=== PATIENT | male | born 1975 | race Two or more races ===

== ENCOUNTER 2019-04-23 02:44 | Emergency (ER) | payer BC ==
[~2019-04-23] VITALS: Ht 182.9 cm; Wt 95.3 kg
[2019-04-23 02:48] VITALS: BP 131/80
--- NOTE | 2019-04-23 03:08 | NUR ---
r above eyebrow superfacial laceration was cleaned w/ NS. pat dried. atb ointment applied and covered w/ a band aid. Patient discharged to home in stable condition. Written and verbal after care instructions given. Patient verbalizes understanding of instruction.
== END 2019-04-23 03:10 | disposition home or self-care (01) ==
LOC: ER 02:44
DX: S01.111A Laceration without foreign body of right eyelid and periocular area, initial encounter (principal); Z98.890 Other specified postprocedural states; W22.8XXA Striking against or struck by other objects, initial encounter; Y93.01 Activity, walking, marching and hiking; Y92.002 Bathroom of unspecified non-institutional (private) residence as the place of occurrence of the external cause; Y99.8 Other external cause status

== ENCOUNTER 2022-05-24 14:20 | Emergency (ER) | payer BC, OTHER ==
[~2022-05-24] VITALS: Ht 180.3 cm; Wt 95.3 kg
[2022-05-24 14:50] LABS: NEUTROPHILS # (AUTO) 3.2 K/uL (1.8-8.9)
[2022-05-24 14:57] LABS: BASOPHILS % (AUTO) 0.5 % (0.0-2.0); EOSINOPHILS % (AUTO) 1.8 % (0.0-6.0); HEMATOCRIT 57 % (39-51); LYMPHOCYTES # (AUTO) 1.2 K/uL (0.8-4.8); LYMPHOCYTES % (AUTO) 24.5 % (20.0-44.0); MEAN CORPUSCULAR HGB CONC 34 g/dl (31.0-36.0); MEAN CORPUSCULAR VOLUME 88 fL (80-96); MONOCYTES # (AUTO) 0.3 K/uL (0.1-1.30); MONOCYTES % (AUTO) 7.1 % (2.0-12.0); NEUTROPHILS % (AUTO) 66.1 % (43.0-81.0); PLATELET COUNT (AUTO) 218 K/uL (150-450); RED BLOOD CELL COUNT(AUTO) 6.42 MIL/uL (4.5-6.0); WHITE BLOOD COUNT (AUTO) 4.8 K/uL (4.3-11.0)
[2022-05-24 15:04] LABS: CALCIUM, SERUM 8.8 mg/dL (8.5-10.1); CARBON DIOXIDE 29 mmol/L (21-32); CHLORIDE 101 mmol/L (98-107); CREATININE 1.2 mg/dL (0.6-1.3); GLUCOSE 112 mg/dL (74-106); SODIUM SERUM 137 mmol/L (136-145); UREA NITROGEN, BLOOD 13 mg/dL (7-18)
[2022-05-24 15:30] LABS: HEMOGLOBIN 19.2 g/dL (13.5-17.5)
[2022-05-24 18:04] VITALS: BP 118/88
--- NOTE | 2022-05-24 18:05 | NUR ---
Patient discharged to home in stable condition. Written and verbal after care instructions given. Patient verbalizes understanding of instruction.
[2022-05-24 20:43] LABS: EOSINOPHILS % (MANUAL) 1 % (0-4); LYMPHOCYTES % (MANUAL) 31 % (16-48); MONOCYTES % (MANUAL) 5 % (0-11.0); NEUTROPHILS % (MANUAL) 63 (42-76)
== END 2022-05-24 18:04 | disposition home or self-care (01) ==
LOC: ER 14:25
DX: R07.89 Other chest pain (principal); F17.200 Nicotine dependence, unspecified, uncomplicated; F41.9 Anxiety disorder, unspecified; Z98.890 Other specified postprocedural states
CPT/HCPCS: 36415; 71045-TC; 80048-TC; 84484-TC; 85025-TC

== ENCOUNTER 2023-07-25 16:19 | Emergency (ER) | payer OTHER ==
[~2023-07-25] VITALS: Ht 180.3 cm; Wt 93.0 kg
[2023-07-25] MEDS ORDERED: IBUP-1955 PO (19:20)
[2023-07-25 20:32] VITALS: BP 101/73; TEMP 98; O2SAT 96
== END 2023-07-25 20:32 | disposition home or self-care (01) ==
LOC: ER 16:27
DX: S06.0XAA Concussion with loss of consciousness status unknown, initial encounter (principal); S16.1XXA Strain of muscle, fascia and tendon at neck level, initial encounter; F17.200 Nicotine dependence, unspecified, uncomplicated; Z88.0 Allergy status to penicillin; W18.30XA Fall on same level, unspecified, initial encounter; Y93.89 Activity, other specified; Y92.89 Other specified places as the place of occurrence of the external cause; Y99.8 Other external cause status
CPT/HCPCS: 70450-TC; 72125-TC